=== PATIENT | female | born 1940 | race Asian ===

== ENCOUNTER 2022-07-23 00:52 | Emergency (ER) | payer MEDICARE ==
[~2022-07-23] VITALS: Ht 154.9 cm; Wt 59.4 kg
--- NOTE | 2022-07-23 01:12 | NUR ---
[id number] FROM HOME FOR C/O GLF WHILE GETTING OUT OF BED. L KNEE ABRASION AND PAIN. PT HAD GLF EARLIER TODAY WITH L WRSIT FRACTURE. PT AWAKE AND ALERT BUT DENIES FALL ON ASSESSMENT ORIENTED X2 TO NAME AND PLACE. DENIES HT, KO, OR BLOODTHINNER USE. WAS AT BEDSIDE FOR EVAL.
--- NOTE | 2022-07-23 01:23 | NUR ---
URINE COLLECTED AND SENT TO LAB
[2022-07-23 01:58] LABS: BASOPHILS % (AUTO) 0.3 % (0.0-2.0); EOSINOPHILS % (AUTO) 0.2 % (0.0-6.0); HEMATOCRIT 38 % (33-45); HEMOGLOBIN 12.5 g/dL (11.5-14.8); LYMPHOCYTES # (AUTO) 0.9 K/uL (0.8-4.8); LYMPHOCYTES % (AUTO) 9.9 % (20.0-44.0); MEAN CORPUSCULAR HGB CONC 33 g/dl (31.0-36.0); MEAN CORPUSCULAR VOLUME 94 fL (82-100); MONOCYTES # (AUTO) 0.7 K/uL (0.1-1.30); MONOCYTES % (AUTO) 8.3 % (2.0-12.0); NEUTROPHILS % (AUTO) 81.3 % (43.0-81.0); PLATELET COUNT (AUTO) 164 K/uL (150-450); RED BLOOD CELL COUNT(AUTO) 3.97 MIL/uL (4.0-5.2); WHITE BLOOD COUNT (AUTO) 8.6 K/uL (4.3-11.0)
--- NOTE | 2022-07-23 02:08 | NUR ---
PT BEING TRANSPORTED TO CT VIA [facility]
[2022-07-23 02:09] LABS: BILIRUBIN,URINE NEGATIVE (NEGATIVE); COLOR,URINE YELLOW (YELLOW); LEUKOCYTE ESTERASE ,URINE NEGATIVE (NEGATIVE); NITRITE, URINE NEGATIVE (NEGATIVE); PROTEIN,URINE TRACE mg/dl (NEGATIVE); UGLUCOSE NEGATIVE (NEGATIVE); UROBILINOGEN,URINE 0.2 EU/dL (0.2)
[2022-07-23 02:10] LABS: BACTERIA,URINE Rare /HPF (None Seen); RBC,URINE 0-2 /HPF (0-2); SQUAMOUS EPITHELIAL CELL,UR Few /HPF (None Seen); WBC,URINE 0-2 /HPF (0-3)
[2022-07-23 02:12] LABS: CALCIUM, SERUM 9.2 mg/dL (8.5-10.1); CARBON DIOXIDE 27 mmol/L (21-32); CHLORIDE 104 mmol/L (98-107); CREATININE 1.4 mg/dL (0.6-1.3); GLUCOSE 132 mg/dL (74-106); POTASSIUM 4.1 mmol/L (3.5-5.1); SODIUM SERUM 138 mmol/L (136-145); UREA NITROGEN, BLOOD 29 mg/dL (7-18)
--- NOTE | 2022-07-23 02:22 | NUR ---
back from ct
--- NOTE | 2022-07-23 02:29 | NUR ---
CALLED [facility] AND MARKED CT HEAD FOR A CRITICAL READ PER LAW
--- NOTE | 2022-07-23 03:09 | NUR ---
IMAGES SENT TO DR. MCKEE
--- NOTE | 2022-07-23 03:18 | NUR ---
20G IV ESTABLISHED AT . PATENT AND INTACT.
--- NOTE | 2022-07-23 03:23 | NUR ---
CALLED DR. MCKEE. MESSAGE LEFT
--- NOTE | 2022-07-23 03:24 | NUR ---
SECURED ADDTL LINE ON R HAND#22, PATENT, INTACT AND FLUSING WELL
--- NOTE | 2022-07-23 03:29 | NUR ---
CALLED DR. MCKEE AGAIN
--- NOTE | 2022-07-23 03:37 | NUR ---
SPEAKING WITH PT'S
--- NOTE | 2022-07-23 03:48 | NUR ---
MARIA T VALDIVIA (DAUGHTER) [phone]
--- NOTE | 2022-07-23 03:52 | NUR ---
CALLED [facility] TRANSFER HOTLINE TO REGUEST HIGHER LEVEL OF CARE. JONN WILL BE CALLING BACK
--- NOTE | 2022-07-23 04:03 | NUR ---
CONTACTED [facility]. AWAITING CALL BACK FROM MD. BARGER AND CT SENT TO [facility].
--- NOTE | 2022-07-23 04:08 | NUR ---
NEURO SURGEON FROM [facility] ON THE PHONE WITH DR. MONAHAN
--- NOTE | 2022-07-23 04:08 | NUR ---
FACE SHEET AND CT RESEULT FAXED TO [facility]/John LUNSFORD
--- NOTE | 2022-07-23 04:10 | NUR ---
[facility] CALLED BACK, SPEAKING WITH ER PHYSICIAN NOW.
--- NOTE | 2022-07-23 04:33 | NUR ---
RECEIVED CALL FROM Taisha MURRAY/[facility], PROVIDED PT TRANSFER REPORT. ALL PERTINENT PT MEDICAL INFO PROVIDED. SHE ACKNOWLEDGED. ADVSIED FACESHEET, CLINICALS AND RESULTS WILL BE FAXED TO THEM. AWAITING FOR PATIENT ST[employer].
--- NOTE | 2022-07-23 05:05 | NUR ---
NEURO CHECK DONE; TO CONTINUE [id number]
--- NOTE | 2022-07-23 05:28 | NUR ---
STALIN RAI FOR [facility] CALLED BACK TO INFORM THAT IMAGING ENGINEER TIME IS @ 0900. PER STALIN RAI, DR. RODRIGUEZ - NEURO SURGEON CAN BE TRANSPORTED AT THAT TIME. CONTINUE TO DO NEURO CHECK AND VITALS. CALL CCT TRANSFER LINE FOR AND CHANGES ON PT. ER MADE IS AWARE.
--- NOTE | 2022-07-23 07:17 | NUR ---
ENDORSEMENT REPORT GIVEN TO STALIN QUINTERO FOR AIME.
--- NOTE | 2022-07-23 08:52 | NUR ---
SPOKE TO BUBBA [phone] [facility]. PT IS GOING TO ICU [id number]
--- NOTE | 2022-07-23 09:01 | NUR ---
REPORT GIVEN TO STALIN MORALES ON FLOOR AT ICU FOR BED # [id number]
--- NOTE | 2022-07-23 09:21 | NUR ---
CALLED [facility] [phone] NEW ETA OF CCT 1015 AM PER GRACE
--- NOTE | 2022-07-23 09:23 | NUR ---
NIH PERFORMED, PT ABLE TO SWALLOW NO COUGH NORMAL SWALLOW, LIFT OF RIGHT ARM HOLD 10 SECONDS, LIFT OF LEFT ARM DROPS IN 3 SECONDS, LIFT OF RIGHT LEG HOLD FOR 10 SECONDS, LIFT OF LEFT LEG HOLD FOR 3 SECONDS, DISCOLORATION NOTED ON LEFT HIP AND BUTTOCK FAMILY STATES FROM THE FALL FROM THE BED, ABRASION ON THE LEFT KNEE NOTED, LEFT HAND TX FOR FX
--- NOTE | 2022-07-23 10:02 | NUR ---
CCT TEAM AT BEDSIDE TO PICKUP PT.
[2022-07-23 10:06] VITALS: BP 144/76
--- NOTE | 2022-07-23 10:25 | NUR ---
PT TRANSFERRED TO [facility], PT IN STABLE CONDITION
== END 2022-07-23 10:29 | disposition short-term general hospital (02) ==
LOC: ER 01:00
DX: S06.2XAA Diffuse traumatic brain injury with loss of consciousness status unknown, initial encounter (principal); R40.2242 Coma scale, best verbal response, confused conversation, at arrival to emergency department; R40.2362 Coma scale, best motor response, obeys commands, at arrival to emergency department; R40.2142 Coma scale, eyes open, spontaneous, at arrival to emergency department; W19.XXXA Unspecified fall, initial encounter; Y92.019 Unspecified place in single-family (private) house as the place of occurrence of the external cause; S62.102D Fracture of unspecified carpal bone, left wrist, subsequent encounter for fracture with routine healing; W19.XXXD Unspecified fall, subsequent encounter; R29.6 Repeated falls; F03.90 Unspecified dementia, unspecified severity, without behavioral disturbance, psychotic disturbance, mood disturbance, and anxiety; M47.892 Other spondylosis, cervical region; Z20.822 Contact with and (suspected) exposure to COVID-19
CPT/HCPCS: 99291; 72125; 87426; 99292; 71045; 70450; 85025; 80048; 81001; 36415; C9803